=== PATIENT | female | born 1980 | race Caucasian/White ===

== ENCOUNTER 2024-11-12 09:59 | Emergency (ER) | payer BC, OTHER ==
[2024-11-12] MEDS: Lidocaine 2% 20 ML MDV INJECT ONE (11:46)
[2024-11-12] MEDS: Lidocaine 2% 5 ML SDV INJECT ONE (11:46)
[2024-11-12 11:48] VITALS: BP 119/77; PULSE 55
== END 2024-11-12 12:00 | disposition home or self-care (01) ==
LOC: LB.ED 09:59
DX: S61.215A Laceration without foreign body of left ring finger without damage to nail, initial encounter (principal); W26.8XXA Contact with other sharp object(s), not elsewhere classified, initial encounter
CPT/HCPCS: 64450; 99283-25; J2003